=== PATIENT | female | born 1960 | race Caucasian/White ===

== ENCOUNTER 2022-04-19 15:41 | Emergency (ER) | payer OTHER ==
--- OUTSIDE RECORDS SUMMARY | 2022-04-19 15:46 | XMS REPORT | Continuity of Care Document ---
:1960 Author Organization [facility] t Address [address] [place] [address] [address] [place] [address] Care Team Providers Name Role Phone Alea Gallego Primary Care Physician [phone] Alea Linares Attending Clinician Unavailable Alex GUNTER, Anuradha Attending Clinician Ugo Simon MD Attending Clinician Carmina Roy Attending Clinician Unavailable Payers Payer Name Policy Type Policy Number Effective Date Expiration Date S ource Problems Condition Condition Condition Status Onset Resolution Last Treating Co mments Source Name Details Category Date Date Treatment Clinician Date Essential Essential Disease Active [facility] hypertensi hypertensi 7-05 [facility] on on 00:00: Hospita 00 l Crohn's Crohn's Disease Active Overview: Meth louise disease of disease of 6-[address] both small both small 00:00: g of this Hospita and large and large 00 note l intestine intestine might be without without different complicati complicati from the on on original. Added automatic ally from request for surgery [id number] Allergies, Adverse Reactions, Alerts This patient has no known allergies or adverse reactions. Family History Family Member Diagnosis Comments Start Date Stop Date Source Natural father Crohn's disease [facility] Natural mother Cancer [facility] mother [facility] Social History Social Habit Start Date Stop Date Quantity Comments Source Tobacco use and 2022-01-09 2022-01-09 Smokeless tobacco [facility] exposure 00:00:00 00:00:00 non-user Hospital Alcohol intake 2022-01-09 2022-01-09 Ex-drinker [facility] 00:[facility] 00:[facility]:00 (finding) Hospital Sex Assigned At [birth year] F [facility] 00:[facility]00 [facility] Smoking Status Start Date Stop Date Source Never smoked tobacco [facility] Medications Ordered Filled Start Stop Current Ordering Indication Dosage Frequency Signature Comments Components Source Medication Medication Date Date Medication? Clinician (SIG) Name Name vedolizumab 300mg Infuse 300 [facility] (ENTYVIO) 01-[address] 300 mg 19:38: 00:00 venous Hospita recon soln 45 :00 catheter l IV solution once. aspirin Yes 1{tbl} 1 tablet. Met hodi (ECOTRIN) 01-31 st 81 MG 16:27: Hospita enteric 46 l coated tablet Lactobac Yes [facility] no.41/Bifid 01-31 st obact no.7 16:27: Hospita (PROBIOTIC- 46 l 10 ORAL) zinc Yes 1{tbl} 1 tablet. Method i gluconate 01-31 st 100 mg 16:27: Hospita tablet 46 l cholecalcif Yes Take by Met isidro carmen, 01-[address] vitamin D3, 16:27: Hospit a 125 mcg 46 l (5,000 unit) tablet BIOTIN, Yes [facility] BULK, MISC 01-31 st 16:27: Hospita 46 l ascorbic 0 Yes Take by [facility] i acid 01-[address] (VITAMIN C 16:27: Hospita ORAL) 46 l multivitami Yes 1{tbl} QD Take 1 Me thodi n tablet 01-[address] 16:27: mouth Hospita 46 daily. l calcium Yes Take by [facility] carbonate 01-[address] (CALCIUM 16:27: Hospita 600 ORAL) 46 l fish Yes Take by [facility] oil/borage/ 7-[address] flax/om3,6, 16:27: Hospit a 9 1 (OMEGA 46 l 3-6-9 ORAL) hydrOXYchlo Yes take as Met hodi roQUINE -[address] (PLAQUENIL) 00:00: Hospit a 200 mg 00 l tablet sod 2021- No 1{bottl Q.5D Take 1 [facility] picosulf-ma 01-09 06-15 e} Bottle by st g ox-citric 00:00: 04:59 mouth 2 Ho spita ac 00 :00 (two) l (Clenpiq) times a 10 mg-3.5 day for 1 gram -12 day. Take gram/160 mL at times solution mentioned in your colonoscop y instructio ns bisacodyL No 20mg Take 4 Metho di (Dulcolax, 01-09-[address] bisacodyl,) 00:00: 04:59 (20 mg Hos fernando 5 mg EC 00 :00 total) by l tablet mouth once for 1 dose. Take at 3pm day prior to procedure lisinopriL- Yes 1{tbl} QD Take 1 Me thodi hydrochloro 6-[address] thiazide 00:00: mouth Hospita (PRINZIDE) 00 daily. l 20-12.5 mg per tablet RABEprazole Yes 20mg QD Take 20 mg [facility] (ACIPHEX) 5-[address] 20 mg EC 00:00: daily. Hospita tablet 00 l Vital Signs Vital Name Observation Time Observation Value Comments Source Systolic blood 2022-01-31 21:25:00 146 mm[Hg] [facility] pressure Diastolic blood 2022-01-31 21:25:00 74 mm[Hg] [facility] pressure Heart rate 2022-01-31 21:25:00 67 /min [facility] Body height 2022-01-31 21:25:00 162.6 cm [facility] Body weight 2022-01-31 21:25:00 90.719 kg [facility] BMI 2022-01-31 21:25:00 34.33 kg/m2 [facility] Oxygen saturation in 2022-01-31 21:25:00 96 /min [facility] Arterial blood by Pulse oximetry Respiratory rate 2022-01-09 16:07:00 13 /min [facility] Procedures Procedure Date / Time Performing Clinician Source Performed ECG 12-LEAD 2022-01-31 21:32:26 AuroraUog [facility] spital CT ENTEROGRAPHY 2022-01-31 17:49:16 Alex, [facility] spital FECAL CALPROTECTIN 2022-01-31 13:00:00 Partridge, [facility] TPMT GENOTYPING, 4 2022-01-09 17:44:00 Partridge, [facility] VARIANTS C-REACTIVE PROTEIN 2022-01-09 17:44:00 Alex, [facility] QUANTIFERON-TB GOLD PLUS, 2022-01-09 17:44:00 Partridge, [facility] 4 TUBE VITAMIN B12 LEVEL 2022-01-09 17:44:00 Alex, [facility] FOLATE LEVEL 2022-01-09 17:44:00 Partridge, [facility] spital COCCIDIOIDES ANTIBODY, 2022-01-09 17:44:00 Partridge, [facility] IGG/IGM BY MISTY TOTAL IRON BINDING 2022-01-09 17:44:00 Partridge, [facility] CAPACITY FERRITIN LEVEL 2022-01-09 17:44:00 Alex, [facility] spital VITAMIN D 25 HYDROXY 2022-01-09 17:44:00 Partridge, [facility] LEVEL HEPATITIS B CORE ANTIBODY 2022-01-09 17:44:00 Partridge, [facility] IGM HEPATITIS B SURFACE 2022-01-09 17:44:00 Partridge, [facility] ANTIGEN HEPATITIS B SURFACE 2022-01-09 17:44:00 Alex, [facility] ANTIBODY HEPATITIS A ANTIBODY 2022-01-09 17:44:00 Partridge, [facility] TOTAL HEPATITIS C ANTIBODY 2022-01-09 17:44:00 Alex, [facility] HEPATITIS B CORE ANTIBODY 2022-01-09 17:44:00 Alex, [facility] TOTAL HC COMPLETE BLD COUNT 2022-01-09 17:44:00 Partridge, Anuradha [facility] W/AUTO DIFF HIV 1/2 ANTIGEN/ANTIBODY, 2022-01-09 17:44:00 AlexAnuradha [facility] FOURTH GENERATION, WITH REFLEXES COMPREHENSIVE METABOLIC 2022-01-09 17:44:00 PartridgeAnuradha [facility] PANEL ESTIMATED GFR 2022-01-09 17:44:00 AlexAnuradha [facility] spital Plan of Care Planned Activity Planned Date Details Comments Source Future Scheduled 2022-03-31 INFLUENZA VACCINE [facility] Test 11:01:31 [code = INFLUENZA VACCINE] Future Scheduled 2022-03-31 COVID-19 VACCINE (#1) [facility] Test 11:01:31 [code = COVID-19 VACCINE (#1)] Future Scheduled 2022-03-31 Screening for [facility] Test 11:01:31 malignant neoplasm of cervix (procedure) [code = 232482853] Future Scheduled 2022-03-31 BREAST CANCER [facility] Test 11:01:31 SCREENING [code = BREAST CANCER SCREENING] Future Scheduled 2022-03-31 COLONOSCOPY SCREENING [facility] Test 11:01:31 [code = COLONOSCOPY SCREENING] Future Scheduled 2022-03-31 SHINGLES VACCINES (1 [facility] Test 11:01:31 of 2) [code = SHINGLES VACCINES (1 of 2)] Future Scheduled 2022-03-31 HEPATITIS B VACCINES [facility] Test 11:01:31 (1 of 3 - Risk 3-dose series) [code = HEPATITIS B VACCINES (1 of 3 - Risk 3-dose series)] Encounters Start End Encounter Admission Attending Care Care Encounter Source Date/Time Date/Time Type Type Clinicians Facility Department ID 2022-01-[address] [facility] [id number] Common 09:22:01 Alea [facility] 2021-09-[address] [facility] [id number] Common 11:18:02 Alea [facility] 2021-08-24 [facility] [id number] Common 13:35:18 Alea [facility] 2021-08-[address] [facility] [id number] Common 12:57:27 Alea [id number] [facility] 2021-08-[address] [facility] [id number] Common 12:47:18 Alea [id number] [facility] 2022-03-29 2022-03-29 Hospital Alex, Anuradha 1.2.840.1 [id number] [facility] 00:00:00 00:00:[address] 3.430.2.7 Hospit a .3.655755 l .8 2022-01-31 2022-01-31 [facility] Alex, Anuradha 1.2.840.1 [id number] [facility] 11:25:36 23:59:[address] 3.430.2.7 Hospit a .3.218708 l .8 2022-01-31 2022-01-31 Office Adrogue, 1.2.840.1 [id number] [facility] 16:00:00 16:55:33 Visit Ugo 71948.1.[address] 3.430.2.7 Hospit a .3.570644 l .8 2022-01-31 2022-01-31 Lab Alex, Anuradha 1.2.840.1 [id number] [facility] 13:00:00 13:05:[address] 3.430.2.7 Hospit a .3.183462 l .8 2022-01-31 2022-01-31 Outpatient ADROGUE, [facility] [id number] [place] 00:00:00 00:00:00 UGO [address] 2022-01-31 2022-01-31 Outpatient ALEX, ANURADHA [facility] [id number] [place] 00:00:00 00:00:[address] 2022-01-31 2022-01-31 Outpatient ALEX, ANURADHA [facility] [id number] [place] 00:00:00 00:00:[address] 2022-01-31 2022-01-31 Travel 1.2.840.1 1.2.858.013 [id number] [facility] 00:00:00 00:00:[address] 3.430.2.7 0.2.7.3.698 Ho spita .3.606323 084.8 l .8 2022-01-19 2022-01-19 ambulatory [facility]LMLC ST[facility] [id number] Common 00:00:00 00:00:00 [facility] 2022-01-10 2022-01-10 Prep for Kirill, 1.2.840.1 [id number] [facility] 00:00:00 00:00:00 Surgery Carmina Zelaya 49196.1.1 834 s t 3.430.2.7 Hospit a .3.630404 l .8 2022-01-09 2022-01-09 Lab Anuradha Johnson 1.2.840.1 [id number] [facility] 12:10:00 12:15:[address] 3.430.2.7 Hospit a .3.811468 l .8 2022-01-09 2022-01-09 Office PartridgeAnuradha pearson 1.2.840.1 [id number] [facility] 11:00:00 11:35:[address] 3.430.2.7 Hospit a .3.206477 l .8 2022-01-09 2022-01-09 Outpatient ALEX, ANURADHA [facility] [id number] [place] 00:00:00 00:00:[address] 2022-01-09 2022-01-09 Travel 1.2.840.1 1.2.762.449 [id number] [facility] 00:00:00 00:00:[address] 3.430.2.7 0.2.7.3.698 Ho spita .3.212726 084.8 l .8 2022-01-09 2022-01-09 Outpatient ALEX, ANURADHA [facility] [id number] [place] 00:00:00 00:00:[address] 2021-12-05 2021-12-05 Travel 1.2.840.1 1.2.732.158 [id number] [facility] 00:00:00 00:00:[address] 3.430.2.7 0.2.7.3.698 Ho spita .3.659282 084.8 l .8 2021-10-13 2021-10-13 ambulatory [facility]LMLC ST[facility]C [id number] Common 00:00:00 00:00:00 [facility] 2021-05-30 2021-05-30 Outpatient STLMLC STLMLC [id number] Common 00:00:00 00:00:00 [facility] 2021-05-04 2021-05-04 Outpatient STLMLC STLMLC [id number] Common 00:00:00 00:00:00 [facility] 2021-05-03 2021-05-03 Outpatient STLMLC STLMLC [id number] Common 00:00:00 00:00:00 [facility] 2021-04-28 2021-04-28 Outpatient STLMLC STLMLC [id number] Common 00:00:00 00:00:00 [facility] 2021-04-19 2021-04-19 Outpatient STLMLC STLMLC [id number] Common 00:00:00 00:00:00 [facility] 2021-03-03 2021-03-03 Outpatient STLMLC STLMLC [id number] Common 00:00:00 00:00:00 [facility] 2020-11-09 2020-11-09 Outpatient STLMLC STLMLC [id number] Common 00:00:00 00:00:00 [facility] 2020-10-28 2020-10-28 Outpatient STLMLC STLMLC [id number] Common 00:00:00 00:00:00 [facility] Results Test Description Test Time Test Comments Results Result Comments Source ECG 12 lead 2022-02-10 21:20:14 Test Item Value Reference Range Interpretation Comme nts Ventricular rate (test code = 253) Atrial rate (test code = 255) MA interval (test code = 266) QRSD interval (test code = 260) QT interval (test code = 264) QTC interval (test code = 265) P axis 1 (test code = 267) QRS axis 1 (test code = 268) T wave axis (test code = 270) EKG impression (test code = 273) Normal sinus rhythm-Inferior infar ct , age undetermined-Abnormal ECG-No previous ECGs available- [id number] 16:39:00 Test Item Value Reference Range Interpretation Comments Fecal calprotectin (test See_Comment H [A utomated message] code = 17295-1) The system [facility] generated this result transmitted ref erence range: <15.6-12 0 mg/kg. The refe rence range was not u sed to interpret this result as normal/abnor mal. Lab Interpretation (test Abnormal code = 63809-0) [facility]
[2022-04-19 16:42] LABS: Absolute Lymphocytes (CBC) 2.5 K/uL (0.7-4.9); Hematocrit 38.7 % (36.0-45.0); MCV 82.4 fL (80-100); MPV 8.2 fL (7.6-11.3)
[2022-04-19 16:44] LABS: Protime INR 1.03
[2022-04-19 17:00] LABS: Albumin 3.6 g/dL (3.4-5.0); Bilirubin Direct 0.1 mg/dL (0-0.2); Bilirubin Total 0.3 mg/dL (0.2-1.0); Magnesium 2.1 mg/dL (1.8-2.4); Potassium 3.5 mmol/L (3.5-5.1); Protein, Total 8.3 g/dL (6.4-8.2)
--- NOTE | 2022-04-19 17:23 | RAD REPORT ---
EXAM DESCRIPTION: RAD - Chest Single View - 04/19/2022 5:14 pm CLINICAL HISTORY: left upper back pain Chest pain. COMPARISON: Chest Pa And Lat (2 Views) dated 06/05/2016; CHEST PA AND LAT 2 VIEW dated 12/09/2008 FINDINGS: Portable technique limits examination quality. Interstitial markings are mildly prominent bilaterally. This may represent interstitial pulmonary adarsh ma or viral infection. The heart is normal in size. No displaced fractures.
--- NOTE | 2022-04-19 20:01 | RAD REPORT ---
EXAM DESCRIPTION: CT - Chest For Pe Angio - 04/19/2022 7:34 pm CLINICAL HISTORY: Chest pain. upper back pain, shortness of breath COMPARISON: No comparisons TECHNIQUE: CT angiogram of the pulmonary arteries was performed with MIP. All CT scans are performed using dose optimization technique as appropriate and may include automated exposure control or mA/KV adjustment according to patient size. FINDINGS: No evidence of pulmonary thromboembolism. No acute aortic finding demonstrated. The lungs are clear. No significant pericardial or pleural fluid. No concerning bony finding. IMPRESSION: No evidence of pulmonary thromboembolism. No acute lung findings.
[2022-04-19] MEDS ORDERED: MORPHINE 4 MG/ML SYR ONE (21:19)
[2022-04-19] MEDS ORDERED: KETOROLAC 30 MG/ML INJ ONE (21:19)
[2022-04-19] MEDS ORDERED: LIDOCAINE 4% PATCH ONE (22:25)
--- NOTE | 2022-04-19 23:00 | ER ---
Nurse's Notes [facility] Name: Tyra Peña Age: 61 yrs Sex: Female : 1960 Arrival Date: 04/19/2022 Time: 15:43 Bed 25 Private MD: Alea Linares Diagnosis: Dorsalgia, unspecified;Chest pain, unspecified;Hypertensive heart disease without heart failure Presentation: 04/19 16:06 Chief complaint: Patient states: left back pain under shoulder blade, shoots into iw breast, pain started a couple days ago, denies injury , just got back from a fishing trip and thought she sprained it , a week ago she had swollen lymph node on left side of neck but that has resolved . Coronavirus screen: At this time, the client does not indicate any symptoms associated with coronavirus-19. Ebola Screen: Patient negative for fever greater than or equal to 101.5 degrees Fahrenheit, and additional compatible Ebola Virus Disease symptoms Patient denies exposure to infectious person. Patient denies travel to an Ebola-affected area in the 21 days before illness onset. No symptoms or risks identified at this time. Initial Sepsis Screen: Does the patient meet any 2 criteria? No. Patient's initial sepsis screen is negative. Does the patient have a suspected source of infection? No. Patient's initial sepsis screen is negative. Risk Assessment: Do you want to hurt yourself or someone else? Patient reports no desire to harm self or others. Onset of symptoms was April 17, 2022. 16:06 Method Of Arrival: Ambulatory iw 16:06 Acuity: SWETA 3 iw Triage Assessment: 22:03 General: Appears in no apparent distress. Behavior is calm, cooperative. Pain: kd3 Complains of pain in chest. Cardiovascular: Patient's skin is warm and dry. Historical: - Allergies: 16:09 No Known Allergies; iw - Home Meds: 16:09 lisinopril 20 mg Oral tab 1 tab once daily [Active]; iw - PMHx: 16:09 Hypertensive disorder; iw - PSHx: 16:09 tubal ligation; iw - Immunization history:: Adult Immunizations up to date. - Social history:: Smoking status: Patient denies any tobacco usage or history of. unknown. Screenin:02 Abuse screen: Denies threats or abuse. Denies injuries from another. Nutritional kd3 screening: No deficits noted. Tuberculosis screening: No symptoms or risk factors identified. Fall Risk IV access (20 points). Assessment: 21:30 General: Appears in no apparent distress. Behavior is calm, cooperative. Pain: ha1 Complains of pain in left subscapular area Pain radiates to left shoulder Pain currently is 10 out of 10 on a pain scale. Pain began 1 day ago. Neuro: Level of Consciousness is awake, alert, obeys commands, Oriented to person, place, time, situation. Cardiovascular: Patient's skin is warm and dry. Respiratory: Airway is patent Trachea midline Respiratory effort is even, unlabored, Respiratory pattern is regular, symmetrical. Musculoskeletal: Range of motion: intact in all extremities, Reports pain in left subscapular area. 21:42 Reassessment: Patient and/or family updated on plan of care and expected duration. Pain ha1 level reassessed. Patient is alert, oriented x 3, equal unlabored respirations, skin warm/dry/pink. Patient denies pain at this time. Patient states feeling better. 23:03 Reassessment: Patient and/or family updated on plan of care and expected duration. Pain ha1 level reassessed. Patient is alert, oriented x 3, equal unlabored respirations, skin warm/dry/pink. Patient denies pain at this time. Vital Signs: 16:06 BP 174 / 96; Pulse 72; Resp 16; Temp 97.4; Pulse Ox 98% on R/A; Weight 90.72 kg; Height iw 5 ft. 4 in. (162.56 cm); Pain 10/10; 21:15 BP 179 / 86; Pulse 72; Resp 19 S; Pulse Ox 98% on R/A; ha1 21:42 Resp 17 S; Pulse Ox 98% on R/A; Pain 3/10; ha1 22:02 BP 152 / 88; Pulse 68; Resp 16; Pulse Ox 98% on R/A; kd3 23:07 BP 139 / 92; Pulse 64; Resp 16; Pulse Ox 99% on R/A; kd3 16:06 Body Mass Index 34.33 (90.72 kg, 162.56 cm) ED Course: 15:43 Patient arrived in ED. mr 15:44 Alea Linares is Private Physician. mr 16:09 Triage completed. iw 16:10 Arm band placed on. iw 16:13 Donovan Nolasco PA is PHCP. cp 16:13 Donovan Morejon MD is Attending Physician. cp 16:42 Inserted saline lock: 20 gauge in right forearm, using aseptic technique. Blood kc6 collected. 16:42 Lipase Sent. kc6 16:42 Basic Metabolic Panel Sent. kc6 16:42 CBC with Diff Sent. kc6 16:42 LFT's Sent. kc6 16:42 Magnesium Sent. kc6 16:42 NT PRO-BNP Sent. kc6 16:42 PT-INR Sent. kc6 16:42 Troponin HS Sent. kc6 20:42 Tiffanie Hernandez, LAZARO is Primary Nurse. kd3 23:06 No provider procedures requiring assistance completed. IV discontinued, intact, kd3 bleeding controlled, No redness/swelling at site. Pressure dressing applied. Patient maintains SpO2 saturation greater than 95% on room air. 23:07 Patient has correct armband on for positive identification. Client placed on continuous kd3 cardiac and pulse oximetry monitoring. NIBP monitoring applied. Administered Medications: 21:19 Drug: TORadol (ketorolac) 30 mg Route: IVP; Site: right forearm; ha1 21:42 Follow up: Response: No adverse reaction; Pain is decreased ha1 21:19 Drug: morphine 4 mg Route: IVP; Infused Over: 4 mins; Site: right forearm; ha1 21:42 Follow up: Response: No adverse reaction; Pain is decreased; RASS: Alert and Calm (0) ha1 22:21 Drug: Lidoderm Patch 5 % (700 mg/patch) 1 patches Route: Topical; Site: affected area; kd3 23:06 Follow up: Response: No adverse reaction; Pain is decreased kd3 22:58 Drug: Baclofen 10 mg Route: PO; kd3 23:06 Follow up: Response: No adverse reaction; Pain is decreased kd3 Medication: 23:07 VIS not applicable for this client. kd3 Outcome: 22:58 Discharge ordered by . cp 23:06 Discharged to home ambulatory. kd3 23:06 Condition: stable 23:06 Discharge instructions given to patient, family, Instructed on discharge instructions, follow up and referral plans. medication usage, Demonstrated understanding of instructions, follow-up care, medications. 23:08 Patient left the ED. kd3 Signatures: Dinorah Everett Irene RN RN Donovan Nolasco PA PA cp Doucette, Kyli, RN RN kd3 Kelly Khanna RN RN ha1 Nati Brar kc6 Corrections: (The following items were deleted from the chart) 16:10 16:09 PSHx: None; [facility] 23:03 22:30 Reassessment: Patient and/or family updated on plan of care and expected ha1 duration. Pain level reassessed. Patient is alert, oriented x 3, equal unlabored respirations, skin warm/dry/pink. Patient denies pain at this time. Patient states feeling better. ha1
--- NOTE | 2022-04-19 23:00 | EDPHYS ---
Physician Documentation [facility] Name: Tyra Peña Age: 61 yrs Sex: Female : 1960 Arrival Date: 04/19/2022 Time: 15:43 Bed 25 Private MD: Alea Linares ED Physician Donovan Morejon HPI: 04/19 16:25 This 61 yrs old Female presents to ER via Ambulatory with complaints of Chest Pain, cp Back Pain, High Blood Pressure. 16:25 The patient presents with pain that is acute, with no known mechanism of injury. The cp symptoms are located in the left scapular area and left subscapular area. 16:25 Onset: The symptoms/episode began/occurred 2-3 days ago. The pain radiates to the left cp side of chest. 16:25 Associated signs and symptoms: Pertinent negatives: abdominal pain, fever, numbness, cp tingling, vomiting, weakness. The problem was sustained from unknown cause. Modifying factors: the patient symptoms are aggravated by movement, deep breaths. Severity of symptoms: in the emergency department the symptoms are unchanged, despite home interventions. Historical: - Allergies: 16:09 No Known Allergies; iw - Home Meds: 16:09 lisinopril 20 mg Oral tab 1 tab once daily [Active]; iw - PMHx: 16:09 Hypertensive disorder; iw - PSHx: 16:09 tubal ligation; iw - Immunization history:: Adult Immunizations up to date. - Social history:: Smoking status: Patient denies any tobacco usage or history of. unknown. ROS: 16:30 Back: Positive for pain at rest, pain with movement, of the left scapular area and left cp subscapular area. 16:30 Constitutional: Negative for body aches, chills, fever, poor PO intake. cp 16:30 Eyes: Negative for injury, pain, redness, and discharge. cp 16:30 ENT: Negative for drainage from ear(s), ear pain, sore throat, difficulty swallowing, difficulty handling secretions. 16:30 Cardiovascular: Positive for chest pain, of the left side of chest, Negative for edema, palpitations. 16:30 Respiratory: Negative for cough, shortness of breath, wheezing. 16:30 Abdomen/GI: Negative for abdominal pain, nausea, vomiting, and diarrhea. 16:30 Skin: Negative for cellulitis, rash. 16:30 Neuro: Negative for altered mental status, headache, numbness, tingling, weakness. 16:30 All other systems are negative. Exam: 16:35 Constitutional: The patient appears in no acute distress, alert, awake, cp non-diaphoretic, non-toxic, well developed, well nourished, uncomfortable. 16:35 Head/Face: Normocephalic, atraumatic. cp 16:35 Eyes: Periorbital structures: appear normal, Conjunctiva: normal, no exudate, no injection, Sclera: no appreciated abnormality, Lids and lashes: appear normal, bilaterally. 16:35 ENT: External ear(s): are unremarkable, Nose: is normal, Mouth: Lips: moist, Oral mucosa: pink and intact, moist, Posterior pharynx: Airway: no evidence of obstruction, patent. 16:35 Neck: ROM/movement: is normal, is supple, without pain, no range of motions limitations, no nuchal rigidity. 16:35 Chest/axilla: Inspection: normal, Palpation: is normal, no crepitus, no tenderness. 16:35 Cardiovascular: Rate: normal, Rhythm: regular, Edema: is not appreciated, JVD: is not appreciated. 16:35 Respiratory: the patient does not display signs of respiratory distress, Respirations: normal, no use of accessory muscles, no retractions, labored breathing, is not present, Breath sounds: are clear throughout, no decreased breath sounds, no stridor, no wheezing. 16:35 Abdomen/GI: Inspection: abdomen appears normal, Palpation: abdomen is soft and non-tender, in all quadrants. 16:35 Back: pain, that is moderate, of the left scapular area and left subscapular area, ROM is normal, CVA tenderness, is absent, vertebral tenderness, is not appreciated. 16:35 Skin: cellulitis, is not appreciated, no rash present. 16:35 Neuro: Orientation: to person, place \T\ time. Mentation: is normal, Motor: moves all fours, strength is normal, Sensation: is normal. 16:42 ECG was reviewed by the Attending Physician. cp Vital Signs: 16:06 BP 174 / 96; Pulse 72; Resp 16; Temp 97.4; Pulse Ox 98% on R/A; Weight 90.72 kg; Height iw 5 ft. 4 in. (162.56 cm); Pain 10/10; 21:15 BP 179 / 86; Pulse 72; Resp 19 S; Pulse Ox 98% on R/A; ha1 21:42 Resp 17 S; Pulse Ox 98% on R/A; Pain 3/10; ha1 22:02 BP 152 / 88; Pulse 68; Resp 16; Pulse Ox 98% on R/A; kd3 23:07 BP 139 / 92; Pulse 64; Resp 16; Pulse Ox 99% on R/A; kd3 16:06 Body Mass Index 34.33 (90.72 kg, 162.56 cm) iw MDM: 16:26 Patient medically screened. cp 22:58 Data reviewed: vital signs, nurses notes, lab test result(s), EKG, radiologic studies, cp CT scan, plain films. 22:58 Test interpretation: by ED physician or midlevel provider: ECG, plain radiologic cp studies. Counseling: I had a detailed discussion with the patient and/or guardian regarding: the historical points, exam findings, and any diagnostic results supporting the discharge/admit diagnosis, the presence of at least one elevated blood pressure reading (>120/80) during this emergency department visit, lab results, radiology results, the need for outpatient follow up, a family practitioner, to return to the emergency department if symptoms worsen or persist or if there are any questions or concerns that arise at home. Response to treatment: the patient's symptoms have markedly improved after treatment, VSS. Patient reports pain markedly improved. Initial and repeat EKGs and troponin negative. Will discharge to home for continued monitoring. 04/19 16:21 Order name: Basic Metabolic Panel cp 04/19 16:21 Order name: CBC with Diff cp 04/19 16:21 Order name: LFT's cp 04/19 16:21 Order name: Magnesium cp 04/19 16:21 Order name: NT PRO-BNP cp 04/19 16:21 Order name: PT-INR cp 04/19 16:21 Order name: Troponin HS cp 04/19 16:27 Order name: Lipase cp 04/19 16:42 Order name: CBC with Automated Diff; Complete Time: 18:08 EDMS 04/19 21:47 Interpretation: Reviewed. cp 04/19 16:44 Order name: Protime (+INR); Complete Time: 18:08 EDMS 04/19 17:01 Order name: Basic Metabolic Panel; Complete Time: 18:08 EDMS 04/19 18:08 Interpretation: Normal except: GLUC 132; GFR 74. 04/19 17:01 Order name: Liver (Hepatic) Function; Complete Time: 18:08 EDMS 04/19 21:47 Interpretation: Normal except: TP 8.3; GLOB 4.7; A/G 0.8. 04/19 17:01 Order name: Troponin High Sensitivity; Complete Time: 18:08 EDMS 04/19 21:48 Interpretation: Troponin HS 4.0; Reviewed. 04/19 17:01 Order name: NT PRO-BNP; Complete Time: 18:08 EDMS 04/19 16:21 Order name: XRAY Chest (1 view) 04/19 16:21 Order name: EKG; Complete Time: 16:21 04/19 16:21 Order name: Cardiac monitoring; Complete Time: 22:02 04/19 17:01 Order name: Magnesium; Complete Time: 18:08 EDMS 04/19 17:24 Order name: RAD; Complete Time: 18:08 EDMS 04/19 17:25 Order name: Lipase; Complete Time: 18:08 EDMS 04/19 18:10 Order name: D-Dimer 04/19 18:10 Order name: LAB Add On 04/19 18:30 Order name: D-Dimer; Complete Time: 19:01 EDMS 04/19 21:47 Interpretation: D-DIMER 507; Reviewed. 04/19 19:02 Order name: CT Chest For PE Angio 04/19 20:02 Order name: CT; Complete Time: 20:42 EDNM 04/19 20:42 Interpretation: Report reviewed. 04/19 20:53 Order name: Troponin HS; Complete Time: 22:57 cp 04/19 22:57 Interpretation: Reviewed. 04/19 16:21 Order name: EKG - Nurse/Tech; Complete Time: 16:42 04/19 16:21 Order name: IV Saline Lock; Complete Time: 16:43 04/19 16:21 Order name: Labs collected and sent; Complete Time: 16:43 04/19 16:21 Order name: O2 Per Protocol; Complete Time: 22:02 04/19 16:21 Order name: O2 Sat Monitoring; Complete Time: 22:02 cp 04/19 20:42 Order name: Blood Pressure Recheck; Complete Time: 22:03 cp EC:42 Rate is 72 beats/min. Rhythm is regular. MA interval is normal. QRS interval is normal. cp QT interval is normal. T waves are Inverted in lead aVR. Interpreted by me. Reviewed by me. Administered Medications: 21:19 Drug: TORadol (ketorolac) 30 mg Route: IVP; Site: right forearm; ha1 21:42 Follow up: Response: No adverse reaction; Pain is decreased ha1 21:19 Drug: morphine 4 mg Route: IVP; Infused Over: 4 mins; Site: right forearm; ha1 21:42 Follow up: Response: No adverse reaction; Pain is decreased; RASS: Alert and Calm (0) ha1 22:21 Drug: Lidoderm Patch 5 % (700 mg/patch) 1 patches Route: Topical; Site: affected area; kd3 23:06 Follow up: Response: No adverse reaction; Pain is decreased kd3 22:58 Drug: Baclofen 10 mg Route: PO; kd3 23:06 Follow up: Response: No adverse reaction; Pain is decreased kd3 Disposition Summary: 04/19/22 22:58 Discharge Ordered Location: Home cp Problem: new cp Symptoms: have improved cp Condition: Stable cp Diagnosis - Dorsalgia, unspecified cp - Chest pain, unspecified cp - Hypertensive heart disease without heart failure cp Followup: cp - With: Private Physician - When: 1 - 2 days - Reason: Recheck today's complaints Discharge Instructions: - Discharge Summary Sheet cp - Acute Back Pain, Adult cp - Nonspecific Chest Pain, Adult cp - Hypertension, Adult cp - Aspirin and Your Heart cp - Form - Blood Pressure Record Sheet cp - How to Take Your Blood Pressure cp Forms: - Medication Reconciliation Form cp - Thank You Letter cp - Antibiotic Education cp - Prescription Opioid Use cp Prescriptions: - Baclofen 10 mg Oral Tablet - take 1 tablet by ORAL route 3 times per day; 20 tablet; Refills: 0, Product cp Selection Permitted - Diclofenac Sodium 75 mg Oral tablet,delayed release (DR/EC) - take 1 tablet by ORAL route 2 times per day; 20 tablet; Refills: 0, Product cp Selection Permitted - Lidoderm 5 % Topical adhesive patch,medicated - apply 1 patch by TOPICAL route once daily; 10 patch; Refills: 0, Product cp Selection Permitted Signatures: Dispatcher [employer] Tiny Diana, RN RN iw Donovan Nolasco PA PA cp Doucette, Kyli, RN RN kd3 Kelly Khanna RN RN ha1 Corrections: (The following items were deleted from the chart) 16:10 16:09 PSHx: None; iw nayana
[2022-04-19] MEDS ORDERED: BACLOFEN 10 MG TAB ONE (23:04)
--- NOTE | 2022-04-20 13:38 | EKG ---
Test Date: 2022-04-19 Test Time: 16:36:18 Copy Editor: LATONIA MEASUREMENT RESULTS: Intervals: Rate: 72 HI: 154 QRSD: 86 QT: 398 QTc: 435 [place]: P: 51 HI: 154 QRS: -28 T: 25 INTERPRETIVE STATEMENTS: Normal sinus rhythm Normal ECG Compared to ECG 06/05/2016 11:47:26 No significant changes Electronically Signed On 04-20-22 13:37:52 CDT by Alpehs Padron
[2022-04-21 15:14] VITALS: TEMP 97.4
[2022-04-21 15:24] VITALS: BP 139/92; O2SAT 99
== END 2022-04-19 23:08 | disposition home or self-care (01) ==
LOC: ER 15:41
DX: R07.89 Other chest pain (principal); I11.9 Hypertensive heart disease without heart failure; M54.9 Dorsalgia, unspecified; I10 Essential (primary) hypertension
CPT/HCPCS: 93005; 85025; 80048; 36415; 83735; 85610; 85379; 80076; 84484 ×2; 83690; 83880; 71275; 71045; 96375; 96374; 99284; Q9967; J2001